=== PATIENT | female | born 1955 | race Caucasian/White ===

== ENCOUNTER 2016-12-09 19:37 | Inpatient (IN) | payer BC ==
[~2016-12-09] VITALS: Ht 165.1 cm; Wt 73.0 kg
[2016-12-09 19:58] LABS: BASO % 0 % (0-3); EOS % 2 % (0-3); HEMATOCRIT 35.2 % (36.0-47.0); HEMOGLOBIN 11.3 g/dL (12.0-15.5); LYMPH # 4.6 x10^3/uL (1.0-4.8); LYMPH % 46 % (24-48); MEAN CORPUSCULAR HEMOGLOBIN 28 pg (25-35); MEAN CORPUSCULAR HGB CONC 32 g/dL (31-37); MEAN CORPUSCULAR VOLUME 87 fL (79-100); MONO % 6 % (0-9); NEUT % 46 % (31-73); PLATELET COUNT 241 x10^3/uL (140-400); RED BLOOD COUNT 4.02 x10^6/uL (3.50-5.40); WHITE BLOOD COUNT 10.1 x10^3/uL (4.0-11.0)
[2016-12-09] MEDS ORDERED: DIPHTH,PERTUSS(ACELL),TET TOX 0.5 ML DISP.SYRIN. VAX IM ONE (20:00)
[2016-12-09 20:17] LABS: CALCIUM 8.9 mg/dL (8.5-10.1); CREATININE 0.8 mg/dL (0.6-1.0); GFR 72.9
[2016-12-09 20:22] LABS: INR 0.9 (0.8-1.1)
--- NOTE | 2016-12-09 20:25 | PHYS DOC ---
Past Medical History Past Medical History: No Pertinent History Past Surgical History: No Surgical History Alcohol Use: None Drug Use: None Adult General Chief Complaint Chief Complaint: fall HPI HPI 61-year-old female presenting to the emergency department today after falling. She reports walking down the stairs with a box of cookies when she had a mechanical fall about [address] and landed on her face. She denies loss of consciousness. She reports right shoulder pain. It happened around 1900 tonight. She denies neck pain numbness weakness tingling. She does have pain in the right part of her face with swelling. The pain is mild. Nonradiating. And not associated with visual changes. Review of systems is negative for chest pain shortness of breath abdominal pain. She denies any other pain in her extremities. All other review of systems is negative unless otherwise noted in history of present illness. Review of Systems Review of Systems SEE ABOVE. Current Medications Current Medications Current Medications Medications (Trade) Dose Ordered Sig/See Start Time Stop Time Status Last Admin Dose Admin Diphtheria/ Tetanus/Acell Pertussis (Boostrix) 0.5 ml ONCE ONCE 12/09/16 20:00 12/09/16 20:01 DC 12/09/16 20:34 0.5 ML Fentanyl Citrate (Fentanyl 2ml Vial) 50 mcg PRN Q30MIN PRN 12/09/16 20:30 12/09/16 20:33 50 MCG Ondansetron HCl (Zofran) 4 mg PRN Q30MIN PRN 12/09/16 20:30 Allergies Allergies Allergies Coded Allergies Type Severity Reaction Last Updated Verified Sulfa (Sulfonamide Antibiotics) Allergy Intermediate 12/09/16 Yes nitrofurantoin Allergy Intermediate 12/09/16 Yes sulfamethoxazole Allergy Intermediate 12/09/16 Yes trimethoprim Allergy Intermediate 12/09/16 Yes Physical Exam Physical Exam General Appearance alert, cooperative, no distress, responsive Head Normocephalic, patient has ecchymosis and swelling above the right eye. No depressed skull fractures noted. Eyes conjunctivae/corneas clear. PERRL, EOM's intact. No diplopia present. Patient reports normal vision in both eyes. Ears normal TM's and external ear canals AU Nose Nares normal. Septum midline. Mucosa normal. No drainage or sinus tenderness. Throat no blood or lacerations, normal alignment Neck supple, symmetrical, trachea midline, cervical collar in place Back/Spine symmetric, normal curvature. ROM normal, no abrasions, no tenderness to palpation, no step-offs Lungs clear to auscultation bilaterally Chest Wall normal ribcage without tenderness to palpation, crepitus or emphysema Heart reg rate and regular rhythm, S1, S2 normal, no murmur, click, rub or gallop Abdomen soft, non-tender. Bowel sounds normal. No masses, no organomegaly Pelvic stable Extremities extremities normal, atraumatic with normal range of motion Pulses 2+ and symmetric Skin Skin color, texture, turgor normal. No rashes or lesions Neurologic Grossly normal Eye opening: (4) spontaneous Best motor response: (6) obeys verbal command Best verbal response: (5) oriented and converses Total [place] (E + M + V) = 15 Current Patient Data Vital Signs Vital Signs Date Time Temp Pulse Resp B/P Pulse Ox O2 Delivery O2 Flow Rate FiO2 12/09/16 20:33 16 Room Air 12/09/16 19:40 98.1 83 159/98 96 98.1 Lab Values Laboratory Tests Test 12/09/16 19:51 12/09/16 20:44 White Blood Count 10.1x10^3/uL (4.0-11.0) Red Blood Count 4.02x10^6/uL (3.50-5.40) Hemoglobin 11.3g/dL (12.0-15.5) L Hematocrit 35.2% (36.0-47.0) L Mean Corpuscular Volume 87fL (79-100) Mean Corpuscular Hemoglobin 28pg (25-35) Mean Corpuscular Hemoglobin Concent 32g/dL (31-37) Red Cell Distribution Width 14.0% (11.5-14.5) Platelet Count 241x10^3/uL (140-400) Neutrophils (%) (Auto) 46% (31-73) Lymphocytes (%) (Auto) 46% (24-48) Monocytes (%) (Auto) 6% (0-9) Eosinophils (%) (Auto) 2% (0-3) Basophils (%) (Auto) 0% (0-3) Neutrophils # (Auto) 4.6x10^3uL (1.8-7.7) Lymphocytes # (Auto) 4.6x10^3/uL (1.0-4.8) Monocytes # (Auto) 0.6x10^3/uL (0.0-1.1) Eosinophils # (Auto) 0.2x10^3/uL (0.0-0.7) Basophils # (Auto) 0.0x10^3/uL (0.0-0.2) Prothrombin Time 12.0SEC (11.7-14.0) Prothrombin Time INR 0.9 (0.8-1.1) PTT 27SEC (24-38) Sodium Level 141mmol/L (136-145) Potassium Level 3.0mmol/L (3.5-5.1) L Chloride Level 103mmol/L (98-107) Carbon Dioxide Level 26mmol/L (21-32) Anion Gap 12 (6-14) Blood Urea Nitrogen 19mg/dL (7-20) Creatinine 0.8mg/dL (0.6-1.0) Estimated GFR (Cockcroft-Gault) 72.9 Glucose Level 188mg/dL (70-99) H Lactic Acid Level 2.7mmol/L (0.4-2.0) H Calcium Level 8.9mg/dL (8.5-10.1) Urine Collection Type Unknown Urine Color Yellow Urine Clarity Clear Urine pH 5.0 Urine Specific Surveyor 1.020 Urine Protein Negativemg/dL (NEG-TRACE) Urine Glucose (UA) Negativemg/dL (NEG) Urine Ketones (Stick) Negativemg/dL (NEG) Urine Blood Trace (NEG) Urine Nitrite Negative (NEG) Urine Bilirubin Negative (NEG) Urine Urobilinogen Dipstick 0.2mg/dL (0.2 mg/dL) Urine Leukocyte Esterase Small (NEG) Urine RBC 0/HPF (0-2) Urine WBC 1-4/HPF (0-4) Urine Squamous Epithelial Cells Few/LPF Urine Bacteria Few/HPF (0-FEW) Laboratory Tests 12/09/16 19:51 Laboratory Tests 12/09/16 19:51 EKG EKG [] Radiology/Procedures Radiology/Procedures [] Course & Med Decision Making Course & Med Decision Making Pertinent Labs and Imaging studies reviewed. (See chart for details) [] 61-year-old female who fell down approximately 15 stairs and was a trauma alert here in our emergency department. Workup found the patient to have right- sided rib fractures with a distal clavicle fracture. No hemothorax or pneumothorax present. I informed the patient and subsequently admitted the patient to her primary care physician Dr. Solano and consulted our trauma surgeon and speaks surgeon for management direction. The patient was placed in a right arm sling and admitted with IV pain meds ordered. She was then admitted for further evaluation workup and care. Dragon Disclaimer Dragon Disclaimer This electronic medical record was generated, in whole or in part, using a voice recognition dictation system. Departure Departure Impression: Primary Impression: Head injury Additional Impressions: Fall Clavicle fracture Fracture of rib of right side Multiple fractures of ribs, right side, initial encounter for closed fracture Disposition: ADMITTED INPATIENT Admitting Physician: Stefano Solano Condition: STABLE Referrals: STEFNAO SOLANO MD (PCP) Problem Qualifiers Additional Impressions: Clavicle fracture Encounter type: initial encounter Clavicle location: unspecified part of clavicle Fracture type: closed Fracture alignment: displaced Laterality: right Qualified Code: S42.001A - Fracture of unspecified part of right clavicle, initial encounter for closed fracture EARLINE SHARP MD Dec 09, 2016 20:25
[2016-12-09] MEDS ORDERED: FENTANYL PF 100 MCG/2 ML VIAL. IV PRN (20:30)
[2016-12-09] MEDS ORDERED: ONDANSETRON PF 4 MG/2 ML VIAL. IV PRN (20:30)
--- NOTE | 2016-12-09 20:37 | RAD ---
PROCEDURE CT head without contrast. CT cervical spine without contrast. HISTORY Facial trauma after a fall injury TECHNIQUE Exposure: One or more of the following individualized dose reduction techniques were utilized for this exam: 1. Automated exposure control. 2. Adjustment of the mA and/or kV according to patient size. 3. Use of iterative reconstruction technique. [address] imaging skullbase to vertex and helical multiplanar reconstructed noncontrast CT imaging of the cervical spine COMPARISON No priors FINDINGS CT Head: No intracranial hemorrhage, mass, hydrocephalus, extra-axial fluid collections or infarction. Right periorbital soft tissue swelling. Dense opacification sphenoid sinuses. Mastoids, skullbase and calvarium intact. CT cervical spine: Craniocervical junction intact. Cervical vertebral body height and alignment intact. Chronic ossicle C1-C2 atlantodental articulation. No fracture of the cervical spine. Right posterior 1st and 2nd rib acute traumatic fractures with slight distraction. Apical pulmonary emphysema. The imaged lung apices demonstrate no pneumothorax although the entirety of the chest is not imaged; correlation with chest x-ray may be of benefit to exclude a pneumothorax. Paraspinal tissues are unremarkable. There may be scattered mild disc bulges present. IMPRESSION CT Head: No acute intracranial CT abnormality. Right periorbital soft tissue swelling. Sphenoid sinus opacification. CT cervical spine: No acute osseous injury of the cervical spine. Acute traumatic fractures of the right 1st and 2nd ribs posteriorly as described above. Electronically signed by: Lexa Jenkins MD (Dec 09, 2016 20:35:34)
--- NOTE | 2016-12-09 20:44 | RAD ---
PROCEDURE Maxillofacial CT without contrast HISTORY Facial trauma after a fall injury TECHNIQUE Exposure: One or more of the following individualized dose reduction techniques were utilized for this exam: 1. Automated exposure control. 2. Adjustment of the mA and/or kV according to patient size. 3. Use of iterative reconstruction technique. Helical multiplanar reconstructed noncontrast CT imaging of the facial bones was acquired COMPARISON No prior FINDINGS Dense opacification of the sphenoid sinuses no discrete fracture of the sinus martinez evident this could be inspissated mucus or hemorrhage. Remaining paranasal sinuses are well aerated. Acute traumatic nondisplaced right nasal bone fracture. Mandible intact. Orbits intact. Symmetrical densities along the surfaces of the anterior ocular globes perhaps contact lenses. There is expansile right periorbital soft tissue edema. There is also possible mild linear stranding edema superior of the right ocular globe which may be mild intraorbital postseptal extaconal edema just overlying to the superior rectus muscle sheath. IMPRESSION 1. Acute traumatic nondisplaced fracture of the right nasal bone. 2. Right periorbital edema. There is likely also mild right postseptal orbital extraconal edema superior to the ocular globe. No proptosis. . Along the anterior surfaces of the ocular globes are symmetric densities, presumably contact lenses, correlate clinically. 3. Dense opacification of the sphenoid sinus as described above. Electronically signed by: Lexa Jenkins MD (Dec 09, 2016 20:43:06)
[2016-12-09 20:54] LABS: BILIRUBIN,URINE NEGATIVE (NEG); GLUCOSE,URINE NEGATIVE (NEG); NITRITE,URINE NEGATIVE (NEG); PROTEIN,URINE NEGATIVE (NEG-TRACE); UROBILINOGEN,URINE 0.2 mg/dL (0.2 mg/dL)
[2016-12-09 21:05] LABS: BACTERIA,URINE FEW /HPF (0-FEW); RBC,URINE 0 /HPF (0-2); SQUAMOUS EPITHELIAL CELL,UR FEW /LPF
--- NOTE | 2016-12-09 22:09 | ACF ---
Admission Forms Criteria MUSCULOSKELETAL DISEASE GRG Clinical Indications for Admission to Inpatient Care (Place 'X' for any and all applicable criteria): Hospital admission is needed for appropriate care of the patient because of 1 or more of the following: [X]I. Fracture, dislocation, or other musculoskeletal injury requiring inpatient care(medical) as indicated by 1 or more of the following(4)(5)(6)(7) [ ]a) Vertebral fracture requiring observation for instability or neurologic compromise (8) [ ]b) Compartment syndrome (proven or cannot be ruled out during observation level of care) (9) [ ]c) Limb-threatening injury [ ]d) Major injury requiring inpatient stabilization such as traction initiation or external fixation before internal fixation or closure of complex or open fracture [X]e) Major injury requiring inpatient treatment after emergency or observation level care (as appropriate) [ ]f) Severe pain requiring acute inpatient management [ ]g) Injury with suspicion of abuse or neglect (eg., child, dependent elderly) [ ]II. Newly diagnosed or suspected bone, joint, or orthopedic device infection (e.g., osteomyelitis, septic arthritis) needing 1 or more of the following(1)(2)(3) [ ]a) IV antibiotics that cannot be initiated in other than inpatient setting (e.g., patient too unstable or home infusion not available) [ ]b) Device removal or replacement [ ]c) Bone or soft tissue debridement [ ]d) Joint drainage (drain placement or repetitive aspirations) [ ]III. Severe rheumatologic disease (e.g., systemic lupus erythematosus, rheumatoid arthritis) with complications or comorbidities (Also use Optimal Recovery Care Criteria or General Recovery Criteria as appropriate on the basis of predominant condition), including 1 or more of the following( 10)(11)(12)(13) [ ]a) Severe infection (e.g., [employer]ENSION WAREHOUSE SUPER[employer]OR infection, sepsis) (14) [ ]b) Respiratory complications, including 1 or more of the following : [ ]i) Pleural effusion with respiratory compromise [ ]ii) Pulmonary hypertension with congestive failure [ ]iii) Respiratory failure [ ]iv) Pulmonary hemorrhage (15) [ ]c) Hematologic disease, including 1 or more of the following: [ ]i) Coagulopathy with bleeding [ ]ii) Thrombosis with hypercoagulable state [ ]iii) Thrombotic thrombocytopenic purpura [ ]d) Cerebritis with seizures, psychosis, or other severe abnormalities [ ]e) Vertebral destruction with monitoring needed for cervical myelopathy& possible respiratory compromise [ ]f) Exacerbation that requires inpatient treatment (e.g., intravenous immunosuppression) (16) [ ]g) Acute renal failure [ ]h) Cerebritis with seizures, psychosis, Altered mental status, or other neurologic abnormalities [ ]i) Pericardial effusion with tamponade [ ]j) Vertebral destruction, with monitoring needed for cervical myelopathy and possible respiratory compromise [ ]IV. Severe vasculitis with complications or comorbidities (Also use Optimal Recovery Care Criteria General Recovery Criteria as appropriate on the basis of predominant condition), including 1 or more of the following(11)(12)(17)(18)(19)(20) [ ]a) Exacerbation that requires inpatient treatment (e.g., intravenous immunosuppression) (19)(21) [ ]b) Pulmonary hemorrhage (15) [ ]c) [employer] SUPER[employer] vasculitis with seizures, psychosis, Altered mental status that is severe or persistent, or other severe abnormalities (22) [ ]d) Cerebral infarction [ ]e) Gastrointestinal ischemia [ ]f) Gangrene or threatened amputation [ ]g) Renal failure (16) [ ]h) Other significant complications of vasculitis ( eg., tissue or organ ischemia, organ dysfunction ) [ ]V. Severe myopathy as indicated by 1 or more of the following (28)(29) [ ]a) New onset of airway compromise or inability to swallow [ ]b) Respiratory deterioration with observation needed for impending respiratory failure [ ]c) Exacerbation that requires inpatient treatment (e.g., intravenous immunosuppression) [ ]. Severe crystal gout (arthropathy) indicated by 1 or more of the following (23)(24) [ ]a) Severe pain requiring acute inpatient management [ ]b) Exacerbation that requires inpatient treatment (e.g., intravenous treatment) [ ]VII.Rhabdomyolysis and 1 or more of the following (25)(26)(27) [ ]a) Acute renal failure [ ]b) Need for intravenous hydration after emergency or observation level care (as appropriate) [ ]c) Inability to maintain oral hydration [ ]d) Change in mental status [ ]e) Electrolyte abnormality that remains after emergency or observation level care (as appropriate) [ ]VIII Post amputation complication, as indicated by ANY ONE of the following [ ]a) Infection [ ]b) Dehiscence [ ]c) Myodesis failure [ ]IX. Severe pain requiring acute inpatient management due to musculoskeletal condition [ ]X. Musculoskeletal Disease and ALL of the following: [ ]a) Symptom or finding for which emergency and observation care have failed or are not considered appropriate (Use General Criteria: Observation Care as appropriate) [ ]b) Presence of ANY ONE of the following [ ]i) A General Admission Criteria [ ]ii) A Pediatric General Admission Criteria The original [facility] [employer] content created by [facility] [employer] has been revised. The portions of the content which have been revised are identified through the use of italic text or in bold, and [facility] has neither reviewed nor approved the modified material. All other unmodified content is copyright [facility]. Please see references footnoted in the original [facility] edition 2016 Admission Criteria Met?: Yes GIN SALINAS Dec 09, 2016 22:09
[2016-12-09 22:30] VITALS: BP 119/50
[2016-12-09] MEDS: MORPHINE SULFATE 2 MG/ML DISP.SYRIN. IV PRN (23:07)
[2016-12-10] MEDS: MORPHINE SULFATE 2 MG/ML DISP.SYRIN. IV PRN ×4 (01:00→10:27)
[2016-12-10 02:51] VITALS: BP 108/52
[2016-12-10] MEDS: ONDANSETRON PF 4 MG/2 ML VIAL. IV PRN ×2 (03:09→10:26)
[2016-12-10 04:31] LABS: BASO % 0 % (0-3); EOS % 0 % (0-3); HEMATOCRIT 31.7 % (36.0-47.0); HEMOGLOBIN 10.2 g/dL (12.0-15.5); LYMPH # 1.4 x10^3/uL (1.0-4.8); LYMPH % 12 % (24-48); MEAN CORPUSCULAR HEMOGLOBIN 28 pg (25-35); MEAN CORPUSCULAR HGB CONC 32 g/dL (31-37); MEAN CORPUSCULAR VOLUME 87 fL (79-100); MONO % 5 % (0-9); NEUT % 83 % (31-73); PLATELET COUNT 217 x10^3/uL (140-400); RED BLOOD COUNT 3.63 x10^6/uL (3.50-5.40); WHITE BLOOD COUNT 11.7 x10^3/uL (4.0-11.0)
[2016-12-10 04:40] LABS: CALCIUM 8.6 mg/dL (8.5-10.1); CREATININE 0.7 mg/dL (0.6-1.0); GFR 85.1; POTASSIUM 3.6 mmol/L (3.5-5.1)
--- NOTE | 2016-12-10 06:51 | EKG ---
[facility] [address] [place] [address] Test Date: 2016-12-09 Test Time: 19:53:46 Pat Name: CHATA SMITH Department: Room: 400 1 Gender: F Recycling Operator: : 1955 Requested By: EARLINE SHARP Order Number: [id number] Reading MD: Eliel Olmstead Measurements Intervals [place] Rate: 72 P: 54 NH: 150 QRS: 65 QRSD: 90 T: 56 QT: 384 QTc: 422 Interpretive Statements SINUS RHYTHM Electronically Signed On 12-10-2016 9:26:37 CDT by Eliel Olmstead
[2016-12-10 07:00] VITALS: BP 110/58
--- NOTE | 2016-12-10 08:43 | RAD ---
Right shoulder radiographs History: Trauma, fall today. Comparison: None. Findings: AP internal rotation, AP external rotation, and scapular Y-view of the right shoulder. There is an acute, obliquely oriented fracture involving the distal right clavicle. There is approximately one shaft width superior displacement of distal fragment, best appreciated on scapular Y-view. No glenohumeral injury is identified. Impression: Acute distal clavicular fracture.
--- NOTE | 2016-12-10 08:44 | RAD ---
Exam: AP portable chest. History: Trauma, patient fell today. Comparison: None. Findings: The heart and mediastinal structures are within normal limits for size. Lungs are without infiltrate. No pneumothorax or pleural effusion is appreciated. Old granulomatous disease of chest is noted. Impression: 1. No acute cardiopulmonary process.
--- NOTE | 2016-12-10 08:59 | PDOC ---
Provider Note Provider Note [id number] DERIC BARBER MD Dec 10, 2016 08:59
[2016-12-10] MEDS ORDERED: HYDROCODONE/APAP 7.5/325MG TABLET. PO PRN (09:00)
--- NOTE | 2016-12-10 09:05 | PDOC2 ---
CONSULT Date of Consult Date of Consult DATE: 12/10/16 TIME: 09:00 History of Present Illness Reason for Visit: The patient is a 61 year old female who reported to the ER after sustaining a fall. She lost her footing at home and fell approximately 15 stairs. She fell primarily on her right side and noticed mostly right sided shoulder and chest pain. She denies losing consciousness. She denies abdominal, pelvic, or lower extremity pain. She has been ambulating since the fall without difficulty. Past Medical History Past Medical History denies Past Surgical History Past Surgical History denies Social History No ALCOHOL: rare Lives: with Family Current Problem List Problem List Problems Medical Problems: (1) Clavicle fracture Status: Acute (2) Fall Status: Acute (3) Fracture of rib of right side Status: Acute (4) Head injury Status: Acute (5) Multiple fractures of ribs, right side, initial encounter forclosed fracture Status: Acute Current Medications Current Medications Current Medications Diphtheria/ Tetanus/Acell Pertussis (Boostrix) 0.5 ml ONCE ONCE VAX IM Last administered on 12/09/16 20:34; Start 12/09/16 at 20:00; Stop 12/09/16 at 20:01; Status DC Fentanyl Citrate (Fentanyl 2ml Vial) 50 mcg PRN Q30MIN PRN IV SEVERE PAIN Last administered on 12/09/16 20:33; Start 12/09/16 at 20:30 Ondansetron HCl (Zofran) 4 mg PRN Q30MIN PRN IV NAUSEA/VOMITING; Start 12/09/16 at 20:30; Stop 12/10/16 at 08:54; Status DC Ondansetron HCl (Zofran) 4 mg PRN Q8HRS PRN IV NAUSEA/VOMITING Last administered on 12/10/16 03:09; Start 12/09/16 at 21:15; Stop 12/10/16 at 21:14 Morphine Sulfate 2 mg PRN Q2HR PRN IV PAIN Last administered on 12/10/16 05:51 ; Start 12/09/16 at 21:15; Stop 12/10/16 at 21:14 Acetaminophen/ Hydrocodone Bitart (Lortab 7.5/325) 1 tab PRN Q4HRS PRN PO PAIN ; Start 12/10/16 at 09:00 Allergies Allergies: Coded Allergies: Sulfa (Sulfonamide Antibiotics) (Verified Allergy, Intermediate, 12/09/16) nitrofurantoin (Verified Allergy, Intermediate, 12/09/16) sulfamethoxazole (Verified Allergy, Intermediate, 12/09/16) trimethoprim (Verified Allergy, Intermediate, 12/09/16) ROS General: No: Appetite, Chills, Fatigue, Malaise, Night Sweats, Other PSYCHOLOGICAL ROS: No: Anxiety, Behavioral Disorder, Concentration difficultie , Decreased libido, Depression, Disorientation, Hallucinations, Hostility, Irritablity, Memory difficulties, Mood Swings, Obsessive thoughts, Other, Physical abuse, Sexual abuse, Sleep disturbances, Suicidal ideation Eyes: Yes Other (swelling of right eye, denies pain or double vision) HEENT: No: Epistaxis, Heacaches, Hearing change, Nasal congestion, Nasal discharge, Oral lesions, Other, Sinus pain, Sneezing, Snoring, Sore Throat, Tinnitus, Vertigo, Visual Changes, Vocal changes ALLERGY AND IMMUNOLOGY: No: Hives, Insect Bite Sensitivity, Itchy/Watery Eyes, Nasal Congestion, Other, Post Nasal Drip, Seasonal Allergies ENDOCRINE: No: Breast Changes, Galactorrhea, Hair Pattern Changes, Hot Flashes , Malaise/lethargy, Mood Swings, Other, Palpitations, Polydipsia/polyuria, Skin Changes, Temperature Intolerance, Unexpected Weight Changes Respiratory: YES: Other (R chest pain noted, denies SOB) Cardiovascular: No Chest Pain, No Edema, No Lt Headedness, No Orthopnea, No Other, No Palpitations, No Paroxysmal Noc. Dyspnea Gastrointestinal: No Abdominal Pain, No Constipation, No Diarrhea, No Hematochezia, No Melena, No Nausea, No Other, No Vomiting Genitourinary: No , No , No , No , No , No , No , No Discharge, No Dysuria, No Flank Pain, No Frequency, No Hematuria, No Incontinence, No Other, No Pain, No Retention, No Urgency Musculoskeletal: Yes Other (R shoulder pain) Neurological: No Behavorial Changes, No Bowel/Bladder ControlChng, No Confusion , No Dizziness, No Gait Disturbance, No Headaches, No Impaired Coord/balance, No Memory Loss, No Numbness/Tingling, No Other, No Seizures, No Speech Problems , No Tremors, No Visual Changes, No Weakness Skin: No Acne, No Dry Skin, No Eczema, No Hair Changes, No Lumps, No Mole Changes, No Mottling, No Nail Changes, No Other, No Pruritus, No Rash, No Skin Lesion Changes Physical Exam General: Alert, Oriented X3 HEENT: Other (R periorbital ecchymosis, symmetric tracking of eyes, no visualized trauma to mouth, throat, or ears) Lungs: Clear to auscultation Heart: Regular rate, Normal S1 Abdomen: Normal bowel sounds, Soft, No tenderness Extremities: No cyanosis, Other (R arm in sling with ice pack) Skin: No rashes, No breakdown Neuro: Normal speech, Strength at 5/5 X4 ext Psych/Mental Status: Mental status NL MUSCULOSKELETAL: Other (tender in R shoulder) Vitals VITALS Vital Signs Date Time Temp Pulse Resp B/P Pulse Ox O2 Delivery O2 Flow Rate FiO2 12/10/16 07:00 98.0 70 14 110/58 94 Room Air 98.0 Labs Labs Laboratory Tests Test 12/09/16 19:51 12/09/16 20:44 12/10/16 03:22 White Blood Count 10.1x10^3/uL (4.0-11.0) 11.7x10^3/uL (4.0-11.0) Red Blood Count 4.02x10^6/uL (3.50-5.40) 3.63x10^6/uL (3.50-5.40) Hemoglobin 11.3g/dL (12.0-15.5) 10.2g/dL (12.0-15.5) Hematocrit 35.2% (36.0-47.0) 31.7% (36.0-47.0) Mean Corpuscular Volume 87fL (79-100) 87fL (79-100) Mean Corpuscular Hemoglobin 28pg (25-35) 28pg (25-35) Mean Corpuscular Hemoglobin Concent 32g/dL (31-37) 32g/dL (31-37) Red Cell Distribution Width 14.0% (11.5-14.5) 14.0% (11.5-14.5) Platelet Count 241x10^3/uL (140-400) 217x10^3/uL (140-400) Neutrophils (%) (Auto) 46% (31-73) 83% (31-73) Lymphocytes (%) (Auto) 46% (24-48) 12% (24-48) Monocytes (%) (Auto) 6% (0-9) 5% (0-9) Eosinophils (%) (Auto) 2% (0-3) 0% (0-3) Basophils (%) (Auto) 0% (0-3) 0% (0-3) Neutrophils # (Auto) 4.6x10^3uL (1.8-7.7) 9.7x10^3uL (1.8-7.7) Lymphocytes # (Auto) 4.6x10^3/uL (1.0-4.8) 1.4x10^3/uL (1.0-4.8) Monocytes # (Auto) 0.6x10^3/uL (0.0-1.1) 0.6x10^3/uL (0.0-1.1) Eosinophils # (Auto) 0.2x10^3/uL (0.0-0.7) 0.0x10^3/uL (0.0-0.7) Basophils # (Auto) 0.0x10^3/uL (0.0-0.2) 0.0x10^3/uL (0.0-0.2) Prothrombin Time 12.0SEC (11.7-14.0) Prothromb Time International Ratio 0.9 (0.8-1.1) Activated Partial Thromboplast Time 27SEC (24-38) Sodium Level 141mmol/L (136-145) 140mmol/L (136-145) Potassium Level 3.0mmol/L (3.5-5.1) 3.6mmol/L (3.5-5.1) Chloride Level 103mmol/L (98-107) 104mmol/L (98-107) Carbon Dioxide Level 26mmol/L (21-32) 25mmol/L (21-32) Anion Gap 12 (6-14) 11 (6-14) Blood Urea Nitrogen 19mg/dL (7-20) 21mg/dL (7-20) Creatinine 0.8mg/dL (0.6-1.0) 0.7mg/dL (0.6-1.0) Estimated GFR (Cockcroft-Gault) 72.9 85.1 Glucose Level 188mg/dL (70-99) 154mg/dL (70-99) Lactic Acid Level 2.7mmol/L (0.4-2.0) Calcium Level 8.9mg/dL (8.5-10.1) 8.6mg/dL (8.5-10.1) Urine Collection Type Unknown Urine Color Yellow Urine Clarity Clear Urine pH 5.0 Urine Specific [place] 1.020 Urine Protein Negativemg/dL (NEG-TRACE) Urine Glucose (UA) Negativemg/dL (NEG) Urine Ketones (Stick) Negativemg/dL (NEG) Urine Blood Trace (NEG) Urine Nitrite Negative (NEG) Urine Bilirubin Negative (NEG) Urine Urobilinogen Dipstick 0.2mg/dL (0.2 mg/dL) Urine Leukocyte Esterase Small (NEG) Urine RBC 0/HPF (0-2) Urine WBC 1-4/HPF (0-4) Urine Squamous Epithelial Cells Few/LPF Urine Bacteria Few/HPF (0-FEW) Laboratory Tests Test 12/09/16 19:51 12/09/16 20:44 12/10/16 03:22 White Blood Count 10.1x10^3/uL (4.0-11.0) 11.7x10^3/uL (4.0-11.0) Red Blood Count 4.02x10^6/uL (3.50-5.40) 3.63x10^6/uL (3.50-5.40) Hemoglobin 11.3g/dL (12.0-15.5) 10.2g/dL (12.0-15.5) Hematocrit 35.2% (36.0-47.0) 31.7% (36.0-47.0) Mean Corpuscular Volume 87fL (79-100) 87fL (79-100) Mean Corpuscular Hemoglobin 28pg (25-35) 28pg (25-35) Mean Corpuscular Hemoglobin Concent 32g/dL (31-37) 32g/dL (31-37) Red Cell Distribution Width 14.0% (11.5-14.5) 14.0% (11.5-14.5) Platelet Count 241x10^3/uL (140-400) 217x10^3/uL (140-400) Neutrophils (%) (Auto) 46% (31-73) 83% (31-73) Lymphocytes (%) (Auto) 46% (24-48) 12% (24-48) Monocytes (%) (Auto) 6% (0-9) 5% (0-9) Eosinophils (%) (Auto) 2% (0-3) 0% (0-3) Basophils (%) (Auto) 0% (0-3) 0% (0-3) Neutrophils # (Auto) 4.6x10^3uL (1.8-7.7) 9.7x10^3uL (1.8-7.7) Lymphocytes # (Auto) 4.6x10^3/uL (1.0-4.8) 1.4x10^3/uL (1.0-4.8) Monocytes # (Auto) 0.6x10^3/uL (0.0-1.1) 0.6x10^3/uL (0.0-1.1) Eosinophils # (Auto) 0.2x10^3/uL (0.0-0.7) 0.0x10^3/uL (0.0-0.7) Basophils # (Auto) 0.0x10^3/uL (0.0-0.2) 0.0x10^3/uL (0.0-0.2) Prothrombin Time 12.0SEC (11.7-14.0) Prothromb Time International Ratio 0.9 (0.8-1.1) Activated Partial Thromboplast Time 27SEC (24-38) Sodium Level 141mmol/L (136-145) 140mmol/L (136-145) Potassium Level 3.0mmol/L (3.5-5.1) 3.6mmol/L (3.5-5.1) Chloride Level 103mmol/L (98-107) 104mmol/L (98-107) Carbon Dioxide Level 26mmol/L (21-32) 25mmol/L (21-32) Anion Gap 12 (6-14) 11 (6-14) Blood Urea Nitrogen 19mg/dL (7-20) 21mg/dL (7-20) Creatinine 0.8mg/dL (0.6-1.0) 0.7mg/dL (0.6-1.0) Estimated GFR (Cockcroft-Gault) 72.9 85.1 Glucose Level 188mg/dL (70-99) 154mg/dL (70-99) Lactic Acid Level 2.7mmol/L (0.4-2.0) Calcium Level 8.9mg/dL (8.5-10.1) 8.6mg/dL (8.5-10.1) Urine Collection Type Unknown Urine Color Yellow Urine Clarity Clear Urine pH 5.0 Urine Specific [place] 1.020 Urine Protein Negativemg/dL (NEG-TRACE) Urine Glucose (UA) Negativemg/dL (NEG) Urine Ketones (Stick) Negativemg/dL (NEG) Urine Blood Trace (NEG) Urine Nitrite Negative (NEG) Urine Bilirubin Negative (NEG) Urine Urobilinogen Dipstick 0.2mg/dL (0.2 mg/dL) Urine Leukocyte Esterase Small (NEG) Urine RBC 0/HPF (0-2) Urine WBC 1-4/HPF (0-4) Urine Squamous Epithelial Cells Few/LPF Urine Bacteria Few/HPF (0-FEW) Images Images IMPRESSION CT Head: No acute intracranial CT abnormality. Right periorbital soft tissue swelling. Sphenoid sinus opacification. CT cervical spine: No acute osseous injury of the cervical spine. Acute traumatic fractures of the right 1st and 2nd ribs posteriorly as described above. Exam: AP portable chest. Findings: The heart and mediastinal structures are within normal limits for size. Lungs are without infiltrate. No pneumothorax or pleural effusion is appreciated. Old granulomatous disease of chest is noted. Impression: 1. No acute cardiopulmonary process. Right shoulder radiographs: Findings: AP internal rotation, AP external rotation, and scapular Y-view of the right shoulder. There is an acute, obliquely oriented fracture involving the distal right clavicle. There is approximately one shaft width superior displacement of distal fragment, best appreciated on scapular Y-view. No glenohumeral injury is identified. Impression: Acute distal clavicular fracture. Maxillofacial CT: IMPRESSION 1. Acute traumatic nondisplaced fracture of the right nasal bone. 2. Right periorbital edema. There is likely also mild right postseptal orbital extraconal edema superior to the ocular globe. No proptosis. . Along the anterior surfaces of the ocular globes are symmetric densities, presumably contact lenses, correlate clinically. 3. Dense opacification of the sphenoid sinus as described above. Assessment/Plan Assessment/Plan 61 year old female, recent fall down 15 stairs. R distal clavicle fx, posterior fx 1st and second ribs; such fractures can signal significant force to the chest, however no pneumothorax, infiltrate or other pulmonary abnormality detected as of now, clinically lungs clear with good O2 saturations. Ortho consult placed to evaluate clavicle; symptomatic managment and monitoring for the rib fractures. Discussed with Dr Solano, will sign off, please call if we can assist in the future ROSALES CONWAY MD Dec 10, 2016 09:05
--- NOTE | 2016-12-10 10:26 | PREOP HP ---
DATE OF SERVICE: 12/09/2016 CHIEF COMPLAINT: Fall. HISTORY OF PRESENT ILLNESS: A 61-year-old healthy white female fell on from steps with no LOC, was found to have a right distal clavicle fracture and right posterior ribs 1 and [address] scan of the head, neck, and chest were unremarkable and no sign of hemo or pneumothorax is seen so far. PAST HISTORY: None meds. ALLERGIES TO SULFA NOTED. No other serious medical problems. SOCIAL HISTORY: Unremarkable nonsmoker, nondrinker. FAMILY HISTORY: Unremarkable. REVIEW OF SYSTEMS: Unremarkable. OBJECTIVE: ENT: She has a large right periorbital hematoma. Eyes appear to be normal. TMs and pharynx are clear. NECK: Normal. LUNGS: Clear. CARDIOVASCULAR: Regular rate. No irregular beat or murmur. ABDOMEN: Soft, benign, and nontender. EXTREMITIES: She is tender over the right distal clavicle. Right arm is in a sling. Distal pulses and neurovascularly are intact. NEUROLOGIC: Physiologic. ASSESSMENT: Right distal clavicle fracture, right posterior ribs 1 and 2 fractures, and right periorbital hematoma. PLAN: As ordered, pain control and orthopedic evaluation. DERIC BARBER MD DR: JOSE ANGEL/corbin JOB#: [id number] / [id number]
[2016-12-10 11:00] VITALS: BP 116/62
--- NOTE | 2016-12-10 14:55 | PDOC2 ---
CONSULT Date of Consult Date of Consult DATE: 12/10/16 TIME: 14:35 Reason for Consult Reason for Consult: right clavicle fracture Referring Physician Referring Physician: ER Identification/Chief Complaint Chief Complaint right shoulder pain Source Source: Chart review, Patient History of Present Illness Reason for Visit: Ms. Neely is a 61 year old female patient who presented to the emergency department yesterday evening after a fall. She says her foot got caught on the carpet upstairs, causing a mechanical fall down 15 stairs. She denies any lightheadedness or loss of consciousness. She did say she fell on her face and has ecchymosis surrounding her right eye. She has mild right shoulder pain today. She is also complaining of mild posterior rib pain. She denies any neck pain or tenderness. Past Medical History Past Medical History No past medical history Cardiovascular: No pertinent hx Past Surgical History Past Surgical History No past surgical history Past Surgical History: No pertinent history Family History Family History: Hypertension Social History Quit (Quit smoking 1 ppd 3-4 years ago) ALCOHOL: rare Drugs: None Lives: with Family Current Problem List Problem List Problems Medical Problems: (1) Clavicle fracture Status: Acute (2) Fall Status: Acute (3) Fracture of rib of right side Status: Acute (4) Head injury Status: Acute (5) Multiple fractures of ribs, right side, initial encounter forclosed fracture Status: Acute Current Medications Current Medications Current Medications Diphtheria/ Tetanus/Acell Pertussis (Boostrix) 0.5 ml ONCE ONCE VAX IM Last administered on 12/09/16 20:34; Start 12/09/16 at 20:00; Stop 12/09/16 at 20:01; Status DC Fentanyl Citrate (Fentanyl 2ml Vial) 50 mcg PRN Q30MIN PRN IV SEVERE PAIN Last administered on 12/09/16 20:33; Start 12/09/16 at 20:30 Ondansetron HCl (Zofran) 4 mg PRN Q30MIN PRN IV NAUSEA/VOMITING; Start 12/09/16 at 20:30; Stop 12/10/16 at 08:54; Status DC Ondansetron HCl (Zofran) 4 mg PRN Q8HRS PRN IV NAUSEA/VOMITING Last administered on 12/10/16 10:26; Start 12/09/16 at 21:15; Stop 12/10/16 at 21:14 Morphine Sulfate 2 mg PRN Q2HR PRN IV PAIN Last administered on 12/10/16t 10:27 ; Start 12/09/16 at 21:15; Stop 12/10/16 at 21:14 Acetaminophen/ Hydrocodone Bitart (Lortab 7.5/325) 1 tab PRN Q4HRS PRN PO PAIN ; Start 12/10/16 at 09:00 Allergies Allergies: Coded Allergies: Sulfa (Sulfonamide Antibiotics) (Verified Allergy, Intermediate, 12/09/16) nitrofurantoin (Verified Allergy, Intermediate, 12/09/16) sulfamethoxazole (Verified Allergy, Intermediate, 12/09/16) trimethoprim (Verified Allergy, Intermediate, 12/09/16) ROS General: No: Appetite, Chills, Fatigue Eyes: No Blurry vision, No Decreased vision HEENT: No: Heacaches, Sore Throat, Visual Changes Hematological and Lymphatic: No: Bleeding Problems, Blood Clots Respiratory: YES: Other (mild right posterior chest wall pain with deep breaths ), No: Cough Cardiovascular: No Chest Pain, No Lt Headedness Gastrointestinal: No Abdominal Pain, No Constipation, No Diarrhea, No Nausea, No Vomiting Genitourinary: No Dysuria, No Frequency, No Hematuria, No Incontinence Musculoskeletal: Yes Other (mild pain in right shoulder), No Gait Disturbance Neurological: No Confusion, No Dizziness Physical Exam General: Alert, Oriented X3, Cooperative, No acute distress HEENT: EOMI, Other (Ecchymosis surrounding right eye) Lungs: Normal air movement Heart: Regular rate Abdomen: Soft Extremities: No clubbing, No cyanosis, No edema, Normal pulses Skin: No rashes, No breakdown Neuro: Normal speech, Sensation intact Psych/Mental Status: Mental status NL, Mood NL MUSCULOSKELETAL: Other (The right shoulder shows normal gross alignment. There is mild to no tenderness to palpation over the fracture at the distal clavicle. Mild tenderness to palpation over posterlateral shoulder. The right shoulder shows normal active range of motion with mild pain at the extremes of motion. Normal motor and sensory function in the axillary, radial, median, and ulnar nerve. [employer] strength normal. Light touch sensation intact throughout right upper extremity. Peripheral pulses intact.) Vitals VITALS Vital Signs Date Time Temp Pulse Resp B/P Pulse Ox O2 Delivery O2 Flow Rate FiO2 12/10/16 11:00 98.4 65 14 116/62 94 Room Air 98.4 Labs Labs Laboratory Tests Test 12/09/16 19:51 12/09/16 20:44 12/09/16 22:30 12/10/16 03:22 White Blood Count 10.1x10^3/uL (4.0-11.0) 11.7x10^3/uL (4.0-11.0) Red Blood Count 4.02x10^6/uL (3.50-5.40) 3.63x10^6/uL (3.50-5.40) Hemoglobin 11.3g/dL (12.0-15.5) 10.2g/dL (12.0-15.5) Hematocrit 35.2% (36.0-47.0) 31.7% (36.0-47.0) Mean Corpuscular Volume 87fL (79-100) 87fL (79-100) Mean Corpuscular Hemoglobin 28pg (25-35) 28pg (25-35) Mean Corpuscular Hemoglobin Concent 32g/dL (31-37) 32g/dL (31-37) Red Cell Distribution Width 14.0% (11.5-14.5) 14.0% (11.5-14.5) Platelet Count 241x10^3/uL (140-400) 217x10^3/uL (140-400) Neutrophils (%) (Auto) 46% (31-73) 83% (31-73) Lymphocytes (%) (Auto) 46% (24-48) 12% (24-48) Monocytes (%) (Auto) 6% (0-9) 5% (0-9) Eosinophils (%) (Auto) 2% (0-3) 0% (0-3) Basophils (%) (Auto) 0% (0-3) 0% (0-3) Neutrophils # (Auto) 4.6x10^3uL (1.8-7.7) 9.7x10^3uL (1.8-7.7) Lymphocytes # (Auto) 4.6x10^3/uL (1.0-4.8) 1.4x10^3/uL (1.0-4.8) Monocytes # (Auto) 0.6x10^3/uL (0.0-1.1) 0.6x10^3/uL (0.0-1.1) Eosinophils # (Auto) 0.2x10^3/uL (0.0-0.7) 0.0x10^3/uL (0.0-0.7) Basophils # (Auto) 0.0x10^3/uL (0.0-0.2) 0.0x10^3/uL (0.0-0.2) Prothrombin Time 12.0SEC (11.7-14.0) Prothromb Time International Ratio 0.9 (0.8-1.1) Activated Partial Thromboplast Time 27SEC (24-38) Sodium Level 141mmol/L (136-145) 140mmol/L (136-145) Potassium Level 3.0mmol/L (3.5-5.1) 3.6mmol/L (3.5-5.1) Chloride Level 103mmol/L (98-107) 104mmol/L (98-107) Carbon Dioxide Level 26mmol/L (21-32) 25mmol/L (21-32) Anion Gap 12 (6-14) 11 (6-14) Blood Urea Nitrogen 19mg/dL (7-20) 21mg/dL (7-20) Creatinine 0.8mg/dL (0.6-1.0) 0.7mg/dL (0.6-1.0) Estimated GFR (Cockcroft-Gault) 72.9 85.1 Glucose Level 188mg/dL (70-99) 154mg/dL (70-99) Lactic Acid Level 2.7mmol/L (0.4-2.0) Calcium Level 8.9mg/dL (8.5-10.1) 8.6mg/dL (8.5-10.1) Urine Collection Type Unknown Urine Color Yellow Urine Clarity Clear Urine pH 5.0 Urine Specific [place] 1.020 Urine Protein Negativemg/dL (NEG-TRACE) Urine Glucose (UA) Negativemg/dL (NEG) Urine Ketones (Stick) Negativemg/dL (NEG) Urine Blood Trace (NEG) Urine Nitrite Negative (NEG) Urine Bilirubin Negative (NEG) Urine Urobilinogen Dipstick 0.2mg/dL (0.2 mg/dL) Urine Leukocyte Esterase Small (NEG) Urine RBC 0/HPF (0-2) Urine WBC 1-4/HPF (0-4) Urine Squamous Epithelial Cells Few/LPF Urine Bacteria Few/HPF (0-FEW) Nasal Screen MRSA (PCR) Negative (Negative) Laboratory Tests Test 12/09/16 19:51 12/09/16 20:44 12/09/16 22:30 12/10/16 03:22 White Blood Count 10.1x10^3/uL (4.0-11.0) 11.7x10^3/uL (4.0-11.0) Red Blood Count 4.02x10^6/uL (3.50-5.40) 3.63x10^6/uL (3.50-5.40) Hemoglobin 11.3g/dL (12.0-15.5) 10.2g/dL (12.0-15.5) Hematocrit 35.2% (36.0-47.0) 31.7% (36.0-47.0) Mean Corpuscular Volume 87fL (79-100) 87fL (79-100) Mean Corpuscular Hemoglobin 28pg (25-35) 28pg (25-35) Mean Corpuscular Hemoglobin Concent 32g/dL (31-37) 32g/dL (31-37) Red Cell Distribution Width 14.0% (11.5-14.5) 14.0% (11.5-14.5) Platelet Count 241x10^3/uL (140-400) 217x10^3/uL (140-400) Neutrophils (%) (Auto) 46% (31-73) 83% (31-73) Lymphocytes (%) (Auto) 46% (24-48) 12% (24-48) Monocytes (%) (Auto) 6% (0-9) 5% (0-9) Eosinophils (%) (Auto) 2% (0-3) 0% (0-3) Basophils (%) (Auto) 0% (0-3) 0% (0-3) Neutrophils # (Auto) 4.6x10^3uL (1.8-7.7) 9.7x10^3uL (1.8-7.7) Lymphocytes # (Auto) 4.6x10^3/uL (1.0-4.8) 1.4x10^3/uL (1.0-4.8) Monocytes # (Auto) 0.6x10^3/uL (0.0-1.1) 0.6x10^3/uL (0.0-1.1) Eosinophils # (Auto) 0.2x10^3/uL (0.0-0.7) 0.0x10^3/uL (0.0-0.7) Basophils # (Auto) 0.0x10^3/uL (0.0-0.2) 0.0x10^3/uL (0.0-0.2) Prothrombin Time 12.0SEC (11.7-14.0) Prothromb Time International Ratio 0.9 (0.8-1.1) Activated Partial Thromboplast Time 27SEC (24-38) Sodium Level 141mmol/L (136-145) 140mmol/L (136-145) Potassium Level 3.0mmol/L (3.5-5.1) 3.6mmol/L (3.5-5.1) Chloride Level 103mmol/L (98-107) 104mmol/L (98-107) Carbon Dioxide Level 26mmol/L (21-32) 25mmol/L (21-32) Anion Gap 12 (6-14) 11 (6-14) Blood Urea Nitrogen 19mg/dL (7-20) 21mg/dL (7-20) Creatinine 0.8mg/dL (0.6-1.0) 0.7mg/dL (0.6-1.0) Estimated GFR (Cockcroft-Gault) 72.9 85.1 Glucose Level 188mg/dL (70-99) 154mg/dL (70-99) Lactic Acid Level 2.7mmol/L (0.4-2.0) Calcium Level 8.9mg/dL (8.5-10.1) 8.6mg/dL (8.5-10.1) Urine Collection Type Unknown Urine Color Yellow Urine Clarity Clear Urine pH 5.0 Urine Specific [place] 1.020 Urine Protein Negativemg/dL (NEG-TRACE) Urine Glucose (UA) Negativemg/dL (NEG) Urine Ketones (Stick) Negativemg/dL (NEG) Urine Blood Trace (NEG) Urine Nitrite Negative (NEG) Urine Bilirubin Negative (NEG) Urine Urobilinogen Dipstick 0.2mg/dL (0.2 mg/dL) Urine Leukocyte Esterase Small (NEG) Urine RBC 0/HPF (0-2) Urine WBC 1-4/HPF (0-4) Urine Squamous Epithelial Cells Few/LPF Urine Bacteria Few/HPF (0-FEW) Nasal Screen MRSA (PCR) Negative (Negative) Images Images Maxillofacial CT shows nondisplaced nasal fracture. Orbits intact. Head and neck CT show no acute intracranial abnormality. No acute osseous injury of the cervical spine. Acute traumatic fractures of the right 1st and 2nd ribs posteriorly Right shoulder x-rays reviewed. The glenohumeral joint is intact and normal. There is an oblique fracture of the distal clavicle with superior displacement. Assessment/Plan Assessment/Plan Right distal clavicle fracture. 1st and 2nd posterior rib fractures. Nasal fracture. Dr. Alvarado and I recommended nonoperative treatment for the distal clavicle fracture. The clavicle fracture can be treated nonoperatively with a sling. Lifting, pushing, and pulling restriction of two pounds. Calcium and vitamin D supplement. Percocet for pain. The patient was advised not to use NSAIDs for pain control as this can slow bone healing. Followup with [facility] in 10-14 days. LOAN ADAMS Dec 10, 2016 14:55
[2016-12-10 15:00] VITALS: BP 122/66
--- NOTE | 2016-12-11 00:17 | DS ---
DATE OF DISCHARGE: 12/10/2016 HOSPITAL SUMMARY: The patient had a long fall down the steps and had right periorbital hematoma, fracture of the right distal clavicle, and fracture of the right posterior first and second ribs. CT scan of the head, neck and chest did not show any other lesions. Laboratory studies were unremarkable. She has been seen by [facility] and is comfortable to be followed as an outpatient at this point. FINAL DIAGNOSES: Traumatic fracture of the right distal clavicle and right first and second ribs. OPERATIONS, PROCEDURES, COMPLICATIONS: None. CONSULTATIONS: Dr. Anand Alvarado and Dr. Khris Frey. DISPOSITION: Pain meds per the ____. Follow up with orthopedic and I will see her on a p.r.n. basis as she does not take any other medications. DERIC BARBER MD DR: JOSE ANGEL/nts JOB#: [id number] / [id number]
== END 2016-12-10 16:25 | disposition home or self-care (01) | DRG 563 ==
LOC: ER 19:37 → 4 NORTH 21:02
PROVIDERS: ADMIT Family Medicine; ATTEND Family Medicine
DX: S42.001A Fracture of unspecified part of right clavicle, initial encounter for closed fracture (principal); S22.41XA Multiple fractures of ribs, right side, initial encounter for closed fracture; H05.231 Hemorrhage of right orbit; S09.90XA Unspecified injury of head, initial encounter; W10.8XXA Fall (on) (from) other stairs and steps, initial encounter; Y93.01 Activity, walking, marching and hiking; S02.2XXA Fracture of nasal bones, initial encounter for closed fracture; Z82.49 Family history of ischemic heart disease and other diseases of the circulatory system; Z88.2 Allergy status to sulfonamides; Z88.8 Allergy status to other drugs, medicaments and biological substances; Y92.098 Other place in other non-institutional residence as the place of occurrence of the external cause; Y99.8 Other external cause status
CPT/HCPCS: 36415; 70450; 70486; 71010; 72125; 73030; 80048; 81001; 83605; 85027; 85610; 85730; 87086; 87641; 90471; 90715; 93005; 96374; J2270; J2405; J3010; 99285-25

== ENCOUNTER → 2021-10-10 | Outpatient (CLI) | payer BC ==
--- NOTE | 2021-10-10 09:59 | KCIC ---
6 views C spine complete HISTORY: Neck pain and left trapezius muscle spasm AP lateral bilateral oblique and open mouth and swimmer's projections were obtained FINDINGS: The C1-C2 relationship is normal. The right neuroforamen are patent. There is narrowing of the C2-C4 and C5-C7 neuroforamen on the left. The vertebral bodies are aligned. There is no loss of vertebral b rigoberto stature. There is no prevertebral soft tissue swelling. Intervertebral heights are preserved. The re is marginal spurring at endplates at C5-C7. IMPRESSION: Degenerative changes with left-sided multilevel neural foraminal stenosis. Electronically signed by: Anand Hassan III, MD (10/10/2021 9:56 AM) [facility]
== END ==
LOC: KCIC 09:25
PROVIDERS: ATTEND Physician Assistant
DX: M47.812 Spondylosis without myelopathy or radiculopathy, cervical region (principal); M48.02 Spinal stenosis, cervical region; M62.838 Other muscle spasm
CPT/HCPCS: 72050

== ENCOUNTER → 2021-11-13 | Outpatient (CLI) | payer BC ==
--- NOTE | 2021-11-14 08:30 | KCIC ---
MRI of the cervical spine without contrast 11/13/2021 CLINICAL HISTORY: Left-sided neck pain. TECHNIQUE: Unenhanced T1-weighted, T2-weighted and inversion recovery sagittal and gradient echo and T2-weighted axial images of the cervical spine were obtained. FINDINGS: Comparison is made to a CT scan of the cervical spine dated 12/09/2016. Some of the images from the study are degraded by patient motion. Very mild lateral curvature of the cervical spine is seen convex to the right. There is straightening of the normal cervical lordosis. Degenerative signal changes are seen involving all of the disks of the cervical spine. Degenerative signal changes are seen within the marrow surrounding these discs. S everal hemangiomas are seen scattered throughout the cervical and visualized thoracic vertebral bree s. These measure 3 to 7 mm in size. No area of abnormal signal intensity is seen involving the cervic al spinal cord. At the C2-3 and C3-4 disc spaces there are minimal generalized disc bulges. Degenerative changes are seen involving the uncovertebral and facet joints bilaterally. These findings do not result in signif icant central spinal canal or neural foraminal stenosis. At the C4-5 disc space there is a mild generalized disc bulge. This is eccentric to the left. Degener ative changes are seen involving the uncovertebral and facet joints bilaterally. These findings do no t result in significant central spinal canal or neural foraminal stenosis. At the C5-6 disc space there is a mild generalized disc bulge. Degenerative changes are seen involvin g the uncovertebral and facet joints bilaterally. These findings do not result in significant central spinal canal or neural foraminal stenosis. At the C6-7 disc space there is a mild generalized disc bulge. This is eccentric to the right. Degene rative changes are seen involving the facet joints bilaterally. These findings do not result in signi ficant central spinal canal or neural foraminal stenosis. At the C7-T1 disc space there is a minimal generalized disc bulge. Degenerative changes are seen invo lving the uncovertebral and facet joints bilaterally. These findings do not result in significant [place] tral spinal canal or neural foraminal stenosis. IMPRESSION: Degenerative changes are seen throughout the cervical spine. These findings do not result in significant central spinal canal or neural foraminal stenosis. Electronically signed by: Sulaiman Vázquez MD (11/14/2021 8:28 AM) [id number]
== END ==
LOC: KCIC MRI 15:06
PROVIDERS: ATTEND Physician Assistant
DX: M47.22 Other spondylosis with radiculopathy, cervical region (principal); M43.8X2 Other specified deforming dorsopathies, cervical region; M50.31 Other cervical disc degeneration, high cervical region; D18.09 Hemangioma of other sites; M48.02 Spinal stenosis, cervical region
CPT/HCPCS: 72141

== ENCOUNTER → 2022-01-21 | Outpatient (CLI) | payer BC ==
[~2022-01-21] MED LIST: IOHEXOL 300 MG/ML 100ML VIAL. IV ONE
--- NOTE | 2022-01-22 08:19 | KCIC ---
CT NECK SOFT TISSUE WITH IV CONTRAST History: Left neck pain and fullness. Comparison: CT head and cervical spine 12/09/2016. Technique: CT of the neck with intravenous contrast. Findings: A symptom marker BB has been placed over the lower left supraclavicular neck. There is bilateral lower cervical enlarged adenopathy with 4.4 x 3.7 x 5.9 cm left level IV and 3.9 x 3.2 x 5.4 cm right level IV lymph nodes and a 2.4 x 2.3 x 2.3 cm level /mediastinal lymph node. Ad ditional shotty cervical lymph nodes are seen bilaterally. No mucosal lesion is identified in the jony al cavity, nasopharynx, oral cavity, oropharynx, larynx, or hypopharynx. The parotid, submandibular a nd thyroid glands are unremarkable. The cervical arteries are patent. The left jugular artery is none nhancing inferior to the hyoid, possibly due to mass effect. Mild degenerative changes in the spine. Severe emphysematous changes in the lung apices. Impression: 1. Enlarged bilateral lower cervical lymphadenopathy. Findings suspicious for malignancy such as lym phoma or metastatic disease. Recommend tissue sampling as well as oncologic workup with CT chest, abd omen and pelvis or PET-CT. Cervical nodes are amenable to ultrasound-guided sampling. 2. Emphysema. Findings discussed with [place] nurse at the office of Dr. PAULA HAHN at 01/22/2022 8:16 AM. FOR INTERNAL CODING PURPOSES RESULT CODE: (C) ------ Exposure: One or more of the following individualized dose reduction techniques were utilized for thi s examination: 1. Automated exposure control 2. Adjustment of the mA and/or kV according to patient size 3. Use of iterative reconstruction technique. Electronically signed by: Antonio Mejia MD (01/22/2022 8:17 AM) [id number]
== END ==
LOC: KCIC CT 12:40
PROVIDERS: ATTEND Neurological Surgery
DX: M54.2 Cervicalgia (principal); R59.0 Localized enlarged lymph nodes; J43.9 Emphysema, unspecified; M47.819 Spondylosis without myelopathy or radiculopathy, site unspecified
CPT/HCPCS: 70491; 82565; Q9967